=== PATIENT | female | born 1995 | race Native Hawaiian/Other Pacific Islander ===

== ENCOUNTER 2018-04-13 08:00 | Outpatient (CLI) | payer OTHER ==
[2018-04-13 12:13] LABS: HGB - HEMOGLOBIN 12.8 g/dL (12.0-16.0); MEAN CORPUSCULAR HEMOGLOBIN 31.4 pg (27.0-31.0); MEAN CORPUSCULAR HGB CONC 33.9 g/dL (32.0-36.0); MEAN CORPUSCULAR VOLUME 92.8 fL (81.0-99.0); MEAN PLATELET VOLUME 8.5 fL (7.9-10.8); RED BLOOD COUNT 4.07 10^6/uL (4.20-5.40); RED CELL DISTRIBUTION WIDTH 12.2 % (12.0-15.0); WHITE BLOOD COUNT 9.3 x10^3/uL (4.8-10.8)
== END 2018-04-13 08:01 ==
LOC: LAB.N 08:00
PROVIDERS: ATTEND Obstetrics & Gynecology
DX: Z34.90 Encounter for supervision of normal pregnancy, unspecified, unspecified trimester (principal)
CPT/HCPCS: 36415; 82950; 85027; 86850

== ENCOUNTER 2018-04-26 08:00 | Outpatient (CLI) | payer OTHER | END 2018-04-26 08:01 | LOC: LAB.N 08:00 | PROVIDERS: ATTEND Obstetrics & Gynecology | DX: Z36.9 Encounter for antenatal screening, unspecified (principal) | CPT/HCPCS: 36415; 86900; 86901 ==

== ENCOUNTER 2018-06-06 05:59 | Outpatient (CLI) | payer OTHER ==
[2018-06-06] MEDS ORDERED: TERBUTALINE 1 MG/ML VIAL SUBQ STA (06:50)
[2018-06-06] MEDS ORDERED: ONDANSETRON ODT 4 MG TABLET TL STA (06:51)
[2018-06-06 07:35] LABS: BILIRUBIN,URINE NEGATIVE (NEGATIVE); GLUCOSE, URINE (UA) NEGATIVE (NEGATIVE); KETONES,URINE (UA) NEGATIVE (NEGATIVE); LEUKOCYTE ESTERASE, URINE NEGATIVE (NEGATIVE); NITRITE,URINE POSITIVE (NEGATIVE); OCCULT BLOOD,URINE NEGATIVE (NEGATIVE); PROTEIN,URINE NEGATIVE (NEGATIVE); UROBILINOGEN,URINE 0.2 (NORMAL) E.U./dL (NORMAL)
[2018-06-06 07:38] LABS: CLARITY,URINE HAZY (CLEAR)
[2018-06-06 07:47] LABS: BACTERIA,URINE Moderate /HPF (None Seen); RBC,URINE 0-5 /HPF (0-5); SQUAMOUS EPITHELIAL CELL,UR MOD Squamous (<= Few)
[2018-06-06] MEDS ORDERED: TERBUTALINE 2.5 MG TABLET PO ONE (07:57)
[2018-06-06] MEDS ORDERED: BETAMETHASONE 30 MG/5 ML VIAL IM ONE (07:57)
[2018-06-06 10:48] VITALS: BP 125/77
--- NOTE | 2018-06-06 10:51 | PREOP HISTORY & PHYSICAL ---
DATE OF SERVICE: 06/06/2018 Physician: Edin Hardy MD PATIENT IDENTIFICATION: Patient is a 23-year-old G1, P0, female whose EDC is 20 July. She has had multiple visits during this . These started at 21 weeks. She is a transfer in from the [facility]. CHIEF COMPLAINT: Abdominal pain. HISTORY OF PRESENT ILLNESS: Patient was awoken at roughly 2 o'clock this morning with sharp upper abdominal pain. She drank some water, laid down, changed position, went back to sleep. She would awaken again at 5:30 this morning, at which time she had again sharp upper abdominal pain. This pain did start to go down into the uterine area. She denies any bleeding. She did develop some cramping associated with this. She denies any trauma. Her job is a desk job. At this time, she denies any stress or other precipitating causes. Her OB course has been unremarkable at this time. She is noted to have a blood type of AB positive. Her 50 gram Glucola was 109. Otherwise her has been unremarkable. She denies any family history of deliveries. She has a sister who has had previous children. PAST MEDICAL HISTORY: Patient denies any hypertensive, diabetic, cardiac or pulmonary disease. PAST SURGICAL HISTORY: She has had facial reconstruction surgery. ALLERGIES: NONE KNOWN. CURRENT MEDICATIONS: vitamins. HABITS: Patient denies use of alcohol, tobacco, street or addictive drugs. FAMILY HISTORY: Positive for a mother who had breast cancer diagnosed at 43 years of age. This was a cause of at 53. She also has a history of an aunt with breast cancer. There is also a history of colon cancer. SOCIAL HISTORY: Patient is to an active duty [employer]. She, herself, is active duty [employer] and she works as a career counselor. PHYSICAL EXAMINATION GENERAL: Patient is a well-developed, well-nourished female. She is currently in no distress at this time. HEENT: Pupils are equal, round. Extraocular muscles intact. Thyroid is not palpably enlarged. HEART: Regular rate and rhythm without murmurs. LUNGS: Lung soto are clear without rales or wheezes. ABDOMEN: Soft, nontender. There is some mild epigastric tenderness as compared to uterine tenderness. heart rates running up at the 140s prior to receiving terbutaline. She did receive terbutaline and noted to have a resolution of her nausea, vomiting, as well as her uterine cramping. She states her pain is resolved at this time. PELVIC: Cervical examination performed by Nursing showed a cervix which was 1 cm dilated, but still long. IMPRESSION: A 23-year-old G1, P0 female who is currently 33 and 5 weeks' gestational age with contractions which have responded well to terbutaline. The possibility of this also representing gastroesophageal reflux disease is highly probable. We will obtain an ultrasound to look for the placental location and signs of any other placental abnormalities. Patient has received subcutaneous terbutaline 0.25 and now oral 2.5 mg. She has also received 12.5 mg of betamethasone in the possibility that she may go into labor. TD: 06/06/2018 09:15 MTDJenise
--- NOTE | 2018-06-06 11:13 | Ultrasound Report ---
Procedure Date: 06/06/2018 Accession Number: [id number] / [id number] Procedure: US - OB Limited CPT Code: FULL RESULT: EXAM: OB Limited DATE: 06/06/2018 10:47 AM CLINICAL HISTORY: rule out abruption, placenta location TECHNIQUE: Real-time scanning was performed with merchandising representative static images obtained. COMPARISON: None FINDINGS: There is a single live intrauterine gestation with a heart rate of 157 bpm and an amniotic fluid index of 15.2 with an MVP of 5.75 cm. The placenta appears normal with no evidence of previa or placental hemorrhage. A three-vessel cord is noted arising from the mid placenta. A survey was not performed. IMPRESSION: Live intrauterine gestation with no evidence of placental hemorrhage/abruption or placenta previa.
== END 2018-06-06 11:00 | disposition home or self-care (01) ==
LOC: WFO 05:59 → FBP 06:03 → WFO 11:00
PROVIDERS: ATTEND Obstetrics & Gynecology
DX: O47.03 False labor before 37 completed weeks of gestation, third trimester (principal); O21.2 Late vomiting of pregnancy; Z3A.33 33 weeks gestation of pregnancy
CPT/HCPCS: 76815; 81001; 96372; 96374; 99214; A9270; Q0162; 87086

== ENCOUNTER 2018-06-07 08:49 | Outpatient (CLI) | payer OTHER ==
[2018-06-07] MEDS ORDERED: BETAMETHASONE 30 MG/5 ML VIAL IM ONE (08:55)
== END 2018-06-07 09:16 | disposition home or self-care (01) ==
LOC: WFO 08:49 → FBP 08:51 → WFO 09:16
PROVIDERS: ATTEND Obstetrics & Gynecology
DX: O47.03 False labor before 37 completed weeks of gestation, third trimester (principal); Z3A.33 33 weeks gestation of pregnancy
CPT/HCPCS: 96372

== ENCOUNTER 2018-06-22 11:10 | Outpatient (CLI) | payer OTHER | END 2018-06-22 11:11 | disposition home or self-care (01) | LOC: LAB.R 11:10 | PROVIDERS: ATTEND Obstetrics & Gynecology | DX: Z36.9 Encounter for antenatal screening, unspecified (principal) | CPT/HCPCS: 87081 ==

== ENCOUNTER 2018-07-13 05:29 | Outpatient (CLI) | payer OTHER ==
[2018-07-13 05:37] VITALS: BP 123/84
== END 2018-07-13 07:20 | disposition home or self-care (01) ==
LOC: WFO 05:29 → FBP 05:30 → WFO 07:20
PROVIDERS: ATTEND Obstetrics & Gynecology
DX: O47.1 False labor at or after 37 completed weeks of gestation (principal); Z3A.39 39 weeks gestation of pregnancy
CPT/HCPCS: 99213

== ENCOUNTER 2018-07-18 04:46 | Outpatient (CLI) | payer OTHER ==
[2018-07-18 05:19] VITALS: BP 125/78
== END 2018-07-18 07:18 | disposition home or self-care (01) ==
LOC: WFO 04:46 → FBP 04:49 → WFO 07:18
PROVIDERS: ATTEND Obstetrics & Gynecology
DX: Z34.03 Encounter for supervision of normal first pregnancy, third trimester (principal)
CPT/HCPCS: 99213

== ENCOUNTER 2018-07-19 00:08 | Inpatient (IN) | payer OTHER ==
[2018-07-19] MEDS ORDERED: PROMETHAZINE 25 MG/1 ML VIAL IM STA (00:52)
[2018-07-19] MEDS ORDERED: MORPHINE 10 MG/ML VIAL IM STA (00:52)
[2018-07-19] MEDS ORDERED: SODIUM CHLORIDE FLUSH 0.9% 10 ML SYRINGE IVP PRN (07:34)
[2018-07-19] MEDS ORDERED: LACTATED RINGERS 500 ML IV ONE ×2 (07:41→17:13)
[2018-07-19 08:19] LABS: BASOPHILS % (AUTO) 0.3 %; EOSINOPHILS % (AUTO) 0.3 %; HGB - HEMOGLOBIN 13.7 g/dL (12.0-16.0); LYMPHOCYTES # (AUTO) 1.7 10^3/uL (1.5-3.5); LYMPHOCYTES % (AUTO) 11.4 %; MEAN CORPUSCULAR HEMOGLOBIN 30.8 pg (27.0-31.0); MEAN CORPUSCULAR HGB CONC 34.7 g/dL (32.0-36.0); MEAN CORPUSCULAR VOLUME 88.8 fL (81.0-99.0); MEAN PLATELET VOLUME 8.8 fL (7.9-10.8); MONOCYTES # (AUTO) 0.6 10^3/uL (0.0-1.0); MONOCYTES % (AUTO) 4.3 %; NEUTROPHILS # (AUTO) 12.3 10^3/uL (1.5-6.6); NEUTROPHILS % (AUTO) 83.7 %; PLT - PLATELET COUNT 238 10^3/uL (130-450); RED BLOOD COUNT 4.46 10^6/uL (4.20-5.40); RED CELL DISTRIBUTION WIDTH 12.5 % (12.0-15.0); WHITE BLOOD COUNT 14.7 x10^3/uL (4.8-10.8)
[2018-07-19] MEDS ORDERED: SODIUM CHLORIDE FLUSH 0.9% 10 ML SYRINGE IVP SCH (09:00)
[2018-07-19] MEDS ORDERED: LACTATED RINGERS 1,000 ML IV ONE (10:51)
[2018-07-19] MEDS ORDERED: OXYTOCIN/SODIUM CHLORIDE 500 ML IV ONE (10:51)
[2018-07-19] MEDS ORDERED: OXYTOCIN/SODIUM CHLORIDE 500 ML IV SCH (12:00)
[2018-07-19] MEDS ORDERED: fentaNYL 100 MCG/2 ML VIAL IVP PRN (12:24)
[2018-07-19] MEDS: fentaNYL 100 MCG/2 ML VIAL IVP PRN ×2 (13:45→15:40)
--- NOTE | 2018-07-19 13:53 | HISTORY & PHYSICAL EXAMINATION ---
DATE OF SERVICE: 07/19/2018 Physician: Gege Dodge MD CHIEF COMPLAINT: Labor. HISTORY OF PRESENT ILLNESS: The patient has been seen in triage multiple times in the past few days for labor checks. On 07/18/2018, her membranes were swept in the office and she was found to be 3 cm . She presented yesterday evening around 11:00 p.m. with more painful and persistent contractions. At that time, she was found to be 4 cm dilated, but aurora rather infrequently. She was offered options for discharge home, observation with sleeping, or augmentation. She chose observation and s he received 10 mg of morphine and 25 mg of Phenergan IM x1. She was able to sleep steadily for quite a few hours. She called the nurse to check her as she began to feel more uncomfortable and at that point she was 5 cm dilated. She is not having any leaking of water. She is having a little bit of b loody show. She is having good movement. PAST MEDICAL HISTORY: Negative. PAST SURGICAL HISTORY: Facial reconstruction in 2017 after a softball injury. She did require surge ry on her forehead and orbit. PAST MEDICAL HISTORY: Negative. MEDICATIONS: vitamins daily. ALLERGIES: NO KNOWN DRUG ALLERGIES. SOCIAL HISTORY: No tobacco, alcohol, or drug use. FAMILY HISTORY: The patient has a very strong history of breast cancer with her mother being diagnos ed at 43-year-old years old and dying at 53-year-old years old. The patient's mother had multiple si sters most of whom also have breast cancer, most diagnosed in the 40s. No family history of anesthes ia complications. OB HISTORY AND PLAN: The patient is a G1, P0. Her due date is today based on her last menstrual per iod, consistent with a trimester ultrasound. Her labs have been normal including blood type Rh positive, rubella immune, and she has received her Tdap. She is group B strep negative. She has not had any problems with this , except for her prodromal contractions for the past few day s. She also had an episode of threatened labor at 33 weeks, for which she received betametha sone. OBJECTIVE: GENERAL: The patient is afebrile with normal vital signs. She is smiling and standing and rocking f rom side to side in her room. When she has a contraction, she pauses, but does not have to breathe th rough them. ABDOMEN: Soft, gravid, and nontender. Fundus is nontender and contractions palpate moderate. [place] is category 1. We have been intermittently monitoring since then with normal heart tones. Contracti ons are about every 5 minutes. IMPRESSION AND PLAN: A 23-year-old G1, at 40 weeks and 0 days by last menstrual period consistent wi th a second trimester ultrasound with spontaneous labor, vertex, AGA, group B strep negative, categor y 1 tracing. 1. Slow cervical dilation: The patient has had slow dilation through the latent phase of labor and she is almost 6 cm now, but things still are not really kicking in for her. She was offered an ongoi ng period of time of observation with rechecks to make sure that she continues to make cervical merchant e. However, I am concerned that the longer she is in labor the more chance of bleeding, infection th ere might be. Therefore, I offered her the option of AROM or Pitocin augmentation to help to affect delivery in a more timely manner. The patient chose augmentation. We will start Pitocin at 1 milliu nits/minute and go up by 1 milliunits as needed every 30 minutes. Patient is undecided about pain co ntrol. She may want an epidural and she declined to get an epidural prior to starting the Pitocin. Spontaneous vaginal delivery is anticipated. 2. Potential issues: None identified. The patient is healthy and Rh positive, rubella i mmune. She has had her Tdap vaccine. 3. Strong family history of breast cancer: The patient is aware that she is at an increased risk of breast cancer due to her family history. She reports that one of her aunts got checked for the BRCA gene. Her mother is and was not checked before . The patient herself has never been checked. We briefly reviewed that the patient herself will have an option of getting BRCA screened a nd we could discuss this further after her delivery. TD: 07/19/2018 12:16
[2018-07-19] MEDS: LACTATED RINGERS 1,000 ML IV SCH ×2 (16:25→21:10)
[2018-07-19] MEDS ORDERED: fent/BUPIV 2 MCG/0.125% 250 ML EP ONE (16:52)
[2018-07-19] MEDS ORDERED: ROPIVACAINE 0.2% PF 20 ML AMPULE ONE (16:55)
--- NOTE | 2018-07-19 17:12 | ANESTHESIA ---
Pre-Anesthesia VS, & Labs - Diagnosis , in active labour - Procedure labour epidural Vital Signs: Temp Pulse Resp BP Pulse Ox 37.2 C 89 20 124/87 H 98 07/19/18 08:38 07/19/18 08:38 07/19/18 08:38 07/19/18 08:38 07/19/18 08:38 Height 5 ft 4 in Weight (kg) 82.554 kg Body Mass Index 31.2 - NPO >8 hours Last Fluid Intake: clears for last 3 hours - Is Patient ?: Yes - Lab Results Lab results reviewed: Yes Fish Bones: 07/19/18 08:04 Home Medications and Allergies Home Medications: Ambulatory Orders Medication Instructions Recorded Confirmed Hydrocodone/Acetaminophen 1 - 2 tab PO Q4-6H PRN #15 tablet 04/16/14 [Hydrocodon-Acetaminophen 5-325] Allergies/Adverse Reactions: Allergies Allergy/AdvReac Type Severity Reaction Status Date / Time No Known Drug Allergies Allergy Verified 04/16/14 22:07 Anes History & Medical History - Anesthetic History Anesthesia Complications: reports: No previous complications - Medical History Cardiovascular: reports: None Pulmonary: reports: None Gastrointestinal: reports: None Urinary: reports: None Neuro: reports: None Musculoskeletal: reports: None Endocrine/Autoimmune: reports: None Blood Disorders: reports: None Skin: reports: None Smoking Status: Never smoker - Obstetrical History : 1 Parity: 0 Events: positive: None Complications: positive: None Problems: no known issues, FHR 140's and normal per OB RN Exam General: Alert Dental: WNL Neck Mobility: Normal Mallampati classification: II Thyromental Distance: 4-6 cm Cardiovascular: Regular rate Extremities: No edema Mental/Cognitive Status: Alert/Oriented X3, Alert Plan Anesthesia Type: Epidural Consent for Procedure(s) Verified and Reviewed: Yes Code Status: Attempt Resuscitation ASA classification: 2-Mild systemic disease Is this case an emergency?: No
[2018-07-19] MEDS ORDERED: fent/BUPIV 2 MCG/0.125% 250 ML EP PRN (17:13)
[2018-07-19] MEDS ORDERED: diphenhydrAMINE INJ 50 MG/ML VIAL IVP PRN (17:13)
[2018-07-19] MEDS ORDERED: NALBUPHINE 10 MG/ML AMP IVP PRN (17:13)
[2018-07-19] MEDS ORDERED: ONDANSETRON 4 MG/2 ML VIAL IVP PRN (17:13)
[2018-07-19] MEDS ORDERED: METOCLOPRAMIDE 10 MG/2 ML VIAL IVP PRN (17:13)
[2018-07-19] MEDS ORDERED: ePHEDrine 50 MG/ML VIAL IVP PRN (17:13)
[2018-07-19] MEDS ORDERED: NALOXONE 0.4 MG/ML VIAL IVP PRN (17:13)
[2018-07-19] MEDS ORDERED: SIMETHICONE CHEW 80 MG TABLET PO PRN (23:14)
[2018-07-19] MEDS ORDERED: ONDANSETRON ODT 4 MG TABLET TL PRN (23:14)
[2018-07-19] MEDS ORDERED: HYDROCORTISONE/PRAMOXINE 10 GM PR PRN (23:14)
[2018-07-19] MEDS ORDERED: ACETAMINOPHEN 500 MG TABLET PO PRN (23:14)
[2018-07-19] MEDS ORDERED: WITCH HAZEL/GLYCERIN 1 EACH MED..PAD TOP PRN (23:14)
[2018-07-19] MEDS ORDERED: OXYTOCIN/SODIUM CHLORIDE 250 ML IV ONE (23:14)
[2018-07-19] MEDS ORDERED: diphenhydrAMINE 25 MG CAPSULE PO PRN (23:14)
[2018-07-20] MEDS: IBUPROFEN 600 MG TABLET PO PRN ×3 (00:50→20:54)
[2018-07-20] MEDS ORDERED: SODIUM CHLORIDE FLUSH 0.9% 10 ML SYRINGE ONE (03:27)
--- NOTE | 2018-07-20 03:39 | PROCEDURE REPORT ---
DATE OF SERVICE: 07/19/2018 Physician: Gege Dodge MD PROCEDURE: Spontaneous vaginal delivery at term. PREDELIVERY DIAGNOSES 1. Intrauterine at 40 weeks and 0 days. 2. Spontaneous labor. POSTPROCEDURE DIAGNOSIS: Status post spontaneous vaginal delivery at term. PHYSICIAN: Gege Dodge M.D. COUNTS: Correct x2. COMPLICATIONS: None apparent. CONDITION: Good. SPECIMENS: Cord blood for typing. ESTIMATED BLOOD LOSS: 200 mL FINDINGS 1. Liveborn male who appears AGA. Apgars 8 at one minute and 9 at five minutes. 2. Clear fluid initially, followed by terminal meconium. 3. Right vaginal sulcal laceration, repaired. ANTEPARTUM COURSE: The patient has had a normal , uncomplicated. She is healthy. LABOR COURSE: The patient had been prodroming for a few days. She presented 24 hours ago at 4 cm dilated. She was rested overnight with a morphine sleep. This morning, she woke up with increased pain and her cervix had changed to 5 cm. She labored without an epidural for quite some time. She required Pitocin augmentation due to slow cervical change and inadequate contractions. This was effective and helping her to become complete. She received an epidural for pain control. heart tracing was reassuring throughout her labor DELIVERY COURSE: The patient had an urge to push and her contractions were associated with variable decelerations. During the pushing phase, these decelerations did become longer, some with a late return to baseline. The fetus also became tachycardic in its baseline at this point with a heart rate in the 160s. However, moderate long-term variability was maintained and the patient was pushing very effectively and delivery was imminent, and so no intervention was required. She was on oxygen. She progressed very effectively to deliver OA over an intact perineum. There was no nuchal cord. The shoulders and body were easily delivered. The child was placed on mom's belly for warming, drying and stimulation. The cord was left pulsating until it stopped. At this point, the doctor clamped the cord x2 and the father of the baby cut the cord. Cord blood was obtained for typing. The cord blood was drained. At the time of cord clamping, Pitocin was started for active management of the placenta. The placenta was delivered approximately 7 minutes later, intact with a 3-vessel cord, with gentle cord traction and a maternal push. Fundal massage yielded a uterus that was firm and 3 cm below the umbilicus. Bleeding was normal. The patient's sulcal laceration was closed with [id number] sutures of 2-0 Vicryl. ANTICIPATED COURSE: Anticipate a routine primipara course. She is status post Tdap vaccine, Rh positive, rubella immune, and she is healthy. TD: 07/19/2018 23:44 [facility]
--- NOTE | 2018-07-20 12:02 | PROVIDER PROGRESS NOTE ---
Objective - Vital Signs/Intake & Output Vital Signs: Vital Signs x48h Temp Pulse Resp BP Pulse Ox 07/20/18 08:57 98.6 F 62 18 124/70 100 Intake & Output: Intake & Output 07/17/18 07/18/18 07/19/18 07/20/18 23:59 23:59 23:59 23:59 Intake Total 7224.287 6871.25 Output Total 300 2125 Balance 1565.250 -627.75 - Lab Results Fish Bones: 07/19/18 08:04 Assessment/Plan - Problem List (1) Vaginal delivery Impression: S: no problems. Happy. , eating, ambulating, urinating well. No heavy bleeding or severe pain. O: AVSS Alert, smiling, NAD. Abd soft, nt/nd. Fundus firm, NT, 2cm below U A/P: 23yo P1 PPD#1 s/p at term. Doing well, anticipate routine care. Rh+, RI, s/p Tdap. (2) Family history of breast cancer in mother Impression: Will discuss genetic screening later today
[2018-07-20] MEDS: DOCUSATE SODIUM 100 MG CAPSULE PO SCH ×2 (12:33→20:54)
--- NOTE | 2018-07-20 14:08 | PROVIDER PROGRESS NOTE ---
Objective - Vital Signs/Intake & Output Vital Signs: Vital Signs x48h Temp Pulse Resp BP Pulse Ox 07/20/18 12:54 98.1 F 84 18 110/79 99 07/20/18 08:57 98.6 F 62 18 124/70 100 Intake & Output: Intake & Output 07/17/18 07/18/18 07/19/18 07/20/18 23:59 23:59 23:59 23:59 Intake Total 5930.658 3763.25 Output Total 300 2125 Balance 1565.250 -627.75 - Lab Results Fish Bones: 07/19/18 08:04 Assessment/Plan - Problem List (2) Family history of breast cancer in mother Impression: Pt with a strong FH of breast cancer. No FH of ovarian CA. Pt's mother dx'ed in 40s, in 50s from the cancer 4 out of 4 of mother's sisters all had breast cancer diagnosed in 40-50s. One aunt is gene negative. Discussed that the FH is concerning and that she is elligible for BRCA gene testing. Benefit of testing is the ability to prophylax to reduce the risk of harm from cancer. Risk of testing is 1) feeling overly reassured by a normal gene or 2) feeling distressed with news of a mutation--possibly with a large impact on one's life. Pt did not want time to consider, wants gene testing. Ordered.
[2018-07-21 07:34] VITALS: BP 134/79
[2018-07-21] MEDS: DOCUSATE SODIUM 100 MG CAPSULE PO SCH (09:06)
[2018-07-21] MEDS: IBUPROFEN 600 MG TABLET PO PRN (09:06)
--- NOTE | 2018-07-21 11:18 | Discharge Plan ---
Discharge Plan Disposition: 01 Home, Self Care Condition: Good Prescriptions: Docusate Sodium 100 mg PO BID PRN #60 capsule PRN Reason: to soften stool Ibuprofen [Motrin] 600 mg PO Q6H PRN #30 tablet PRN Reason: Abdominal Pain Diet: Regular Activity Restrictions: No Restrictions Shower Restrictions: No Driving Restrictions: No Additional Instructions or Follow Up instructions: See written instructions from labor and delivery. No Smoking: If you smoke, Please STOP! Call for help. Follow-up with: Gege Dodge MD [Provider Admit Priv/Credential] - 2 Weeks
--- NOTE | 2018-07-21 14:04 | DISCHARGE SUMMARY ---
Physician: Gege Dodge MD DATE OF ADMISSION: 07/19/2018 DATE OF DISCHARGE: 07/21/2018 ADMISSION DIAGNOSES 1. Intrauterine at term. 2. Spontaneous labor. 3. Family history of breast cancer. DISCHARGE DIAGNOSES 1. Status post spontaneous vaginal delivery at term. 2. Family history of breast cancer. OPERATIONS AND PROCEDURES: On 07/19/2018, normal spontaneous vaginal delivery at term. HOSPITAL COURSE: The patient was admitted in labor. She did require augmentation. Otherwise, her d elivery was unremarkable. By day 2, she was requesting discharge home. She was eating, ambulating, and urinating wi thout difficulties. She was well and did not have any problems with her pain control o r mood. DISCHARGE EXAMINATION: Afebrile with normal vital signs. The patient is alert and smiling and in no apparent distress. She is and smiling. Abdomen is soft, nontender, nondistended. Fu ndus firm, nontender, and at the umbilicus. No labs were performed. The patient also has a very strong family history of breast cancer. Her mother had breast cancer in her 40s and was by 50. All of her mother's 4 sisters also had breast cancer with onset in t heir 40s. The patient was offered BRCA testing, which she opted to do. We will review these results in clinic. She was counseled about the risks and benefits of testing. DISCHARGE DISPOSITION: Home. CONDITION: Good. FOLLOWUP: In [address] Dodge. MEDICATIONS 1. vitamins daily. 2. Ibuprofen p.r.n. pain. 3. Colace p.r.n. to soften stool. OUTSTANDING LABORATORIES: BRCA screening. TD: 07/21/2018 12:50
== END 2018-07-21 13:50 | disposition home or self-care (01) | DRG 775 ==
LOC: WFO 00:08 → FBP 00:09 → WFO 01:15 → FBP 01:20 → OBSVTOIN 07:34 → FBP 07-20 10:45 → OBS 07-20 10:45 → UNDODISIN 07-21 13:50
PROVIDERS: ADMIT Obstetrics & Gynecology; ATTEND Obstetrics & Gynecology
PROC: 10E0XZZ Delivery of Products of Conception, External Approach (ICD-10-PCS; principal; 2018-07-19)
PROC: 3E033VJ Introduction of Other Hormone into Peripheral Vein, Percutaneous Approach (ICD-10-PCS; 2018-07-19)
PROC: 0HQ9XZZ Repair Perineum Skin, External Approach (ICD-10-PCS; 2018-07-19)
DX: O62.0 Primary inadequate contractions (principal); O71.4 Obstetric high vaginal laceration alone; Z37.0 Single live birth; Z3A.40 40 weeks gestation of pregnancy
CPT/HCPCS: 36415; 81599; 85025; 99213

== ENCOUNTER 2020-01-16 13:22 | Outpatient (CLI) | payer OTHER ==
[2020-01-16 21:20] LABS: TRICHOMONAS VAGINALIS DNA NEGATIVE (NEGATIVE)
== END 2020-01-16 23:59 | disposition home or self-care (01) ==
LOC: LAB.R 13:22
PROVIDERS: ATTEND Nurse Practitioner Obstetrics & Gynecology
DX: Z22.330 Carrier of Group B streptococcus (principal); Z11.3 Encounter for screening for infections with a predominantly sexual mode of transmission
CPT/HCPCS: 87491; 87591; 87661; 87797

== ENCOUNTER 2020-01-26 23:10 | Inpatient (IN) | payer OTHER ==
[2020-01-26] MEDS ORDERED: ONDANSETRON 4 MG/2 ML VIAL IVP PRN (23:48)
[2020-01-26] MEDS ORDERED: ACETAMINOPHEN 325 MG TABLET PO PRN (23:48)
[2020-01-26] MEDS ORDERED: SODIUM CHLORIDE FLUSH 0.9% 10 ML SYRINGE IVP PRN (23:48)
[2020-01-26] MEDS ORDERED: fentaNYL 100 MCG/2 ML VIAL IVP PRN (23:48)
[2020-01-26] MEDS ORDERED: VANCOMYCIN INJ 1 GM in SODIUM CHLORIDE 0.9% 250 ML IV STA (23:48)
[2020-01-27 00:14] LABS: BASOPHILS % (AUTO) 0.2 %; EOSINOPHILS # (AUTO) 0.1 10^3/uL (0.0-0.7); EOSINOPHILS % (AUTO) 1.1 %; HGB - HEMOGLOBIN 13.8 g/dL (12.0-16.0); LYMPHOCYTES # (AUTO) 1.8 10^3/uL (1.5-3.5); LYMPHOCYTES % (AUTO) 17.1 %; MEAN CORPUSCULAR HEMOGLOBIN 29.7 pg (27.0-31.0); MEAN CORPUSCULAR HGB CONC 33.6 g/dL (32.0-36.0); MEAN CORPUSCULAR VOLUME 88.4 fL (81.0-99.0); MEAN PLATELET VOLUME 10.5 fL (7.9-10.8); MONOCYTES # (AUTO) 0.7 10^3/uL (0.0-1.0); MONOCYTES % (AUTO) 6.2 %; NEUTROPHILS % (AUTO) 74.9 %; PLT - PLATELET COUNT 251 10^3/uL (130-450); RED BLOOD COUNT 4.65 10^6/uL (4.20-5.40); RED CELL DISTRIBUTION WIDTH 12.4 % (12.0-15.0); WHITE BLOOD COUNT 10.7 x10^3/uL (4.8-10.8)
[2020-01-27] MEDS: LACTATED RINGERS 1,000 ML IV SCH ×2 (00:19→06:15)
--- NOTE | 2020-01-27 00:19 | HISTORY & PHYSICAL EXAMINATION ---
Admit History - Visit Reason Visit Reason: Contractions (25yo GBS+ at 38 2/7 weeks by LMP c/w first trimester US presents with contractions since evening 01/25 increasing in intensity. No vaginal bleeding or fluid leak. Normal activity. No n/v/f/c or dysuria) - : 2 Parity: 1 Premature: 0 Ectopic: 0 : 0 Care: positive: IWMERLIN, BIBI-Marcella Risk/History: positive: None Complications This : positive: Treated for GBS/UTI, Other (Second trimester bleeding Abnormal glucola; nml 3h GTT) Smoking Status: Former smoker - Mother's Labs Mother's Blood Type: positive: AB Mother's RH: positive: Positive GBS: positive: Group B Strep Positive Rubella Status: positive: Immune (HIV/RPR/HepB NR GC/chlam neg Urine +GBS Glucola 163; 3h GTT 134/ RASHMI 1/LSIL PAP Tdap 11/13/2019) - Other Maternal History Other Maternal History: H/O facial reconstruction Cystic fibrosis Meds/Allgy - Home Medications Home Medications: Ambulatory Orders Medication Instructions Recorded Confirmed Pnv No.95/Ferrous Fum/Folic AC 1 tab PO DAILY 01/27/20 01/27/20 [ [place]] - Allergies Allergies/Adverse Reactions: Allergies Allergy/AdvReac Type Severity Reaction Status Date / Time No Known Drug Allergies Allergy Verified 01/27/20 00:57 Review of Systems - Other Findings Other Findings: As noted above Physical - Abdominal Exam Vital Signs: Temp Pulse Resp BP Pulse Ox 97.7 F 69 17 137/86 H 100 01/26/20 23:19 01/26/20 23:19 01/26/20 23:19 01/26/20 23:29 01/26/20 23:19 Contraction Frequency (min/apart): q3-4 Contraction Intensity: positive: Moderate to strong Uterine Resting Tone: positive: Soft - Monitoring Heart Rate Baseline: 130's Strip Review: positive: Category I - Presentation Presentation: positive: Vertex (by bedside scan) - Vaginal Exam Membranes: positive: Membranes intact Dilation (in cm): 6cm per RN exam Station: positive: 0 - Speculum Exam Speculum Exam Performed: positive: No Plan for Labor - Plan For Labor Plan for Labor: 25yo at 38 2/7 weeks in active labor. GBS bacteruria reported first trimester. Sensitivities not done however, apparently PCN allergy reported erroneously. Will pretreat with benedryl and give ampicillin for prophylaxis. Planning epidural, anesthesia called; start hydration, CBC, T&S ordered. Borderline-mildly elevated BP noted on admission with contractions. Will follow for now. EFW 3400gm Expect Exam - Exam Vital Signs: Vital Signs (72 hours) 01/26/20 01/26/20 23:19 23:29 Temperature 97.7 F Heart Rate [ 69 Monitoring electrodes] Respiratory 17 Rate Blood Pressure 151/90 H 137/86 H [Left Brachial artery] O2 Saturation 100 General: Alert, Oriented x3, Cooperative, Moderate distress (with contractions) Lungs: Clear to auscultation, Normal air movement Cardiovascular: Regular rate, No murmurs Abdomen: Normal bowel sounds, No tenderness, No masses (Gravid, S=D) Skin: No rashes Neurological: Normal gait, Normal speech Psych/Mental Status: Mental status NL
[2020-01-27] MEDS ORDERED: AMPICILLIN 2 GM in SODIUM CHLORIDE 0.9% MINIBAG 100 ML IV ONE (00:21)
[2020-01-27] MEDS ORDERED: diphenhydrAMINE INJ 50 MG/ML VIAL IVP STA (00:23)
[2020-01-27] MEDS: OXYTOCIN/SODIUM CHLORIDE 500 ML IV PRN ×3 (00:46→06:16)
[2020-01-27] MEDS ORDERED: SODIUM CHLORIDE FLUSH 0.9% 10 ML SYRINGE IVP SCH (01:00)
--- NOTE | 2020-01-27 01:05 | PROVIDER PROGRESS NOTE ---
Subjective - Prog Note Date Prog Note Date: 01/27/20 Prog Note Time: 00:25 - Subjective Subjective: Feeling a lot more pressure. VSS afeb Category 1 Anterior lip/+2 AROM clear. Expect Objective - Vital Signs/Intake & Output Vital Signs: Vital Signs x48h Temp Pulse Resp BP Pulse Ox 01/26/20 23:29 137/86 H 01/26/20 23:19 97.7 F 69 17 151/90 H 100 Intake & Output: Intake & Output 01/24/20 01/25/20 01/26/20 01/27/20 23:59 23:59 23:59 23:59 Intake Total 249.75 Balance 249.75 - Lab Results Fish Bones: 01/26/20 23:55 Other Labs: Lab Results x24hrs 01/26/20 01/26/20 Range/Units 23:55 23:55 WBC 10.7 (4.8-10.8) x10^3/uL RBC 4.65 (4.20-5.40) 10^6/uL Hgb 13.8 (12.0-16.0) g/dL Hct 41.1 (37.0-47.0) % MCV 88.4 (81.0-99.0) fL MCH 29.7 (27.0-31.0) pg MCHC 33.6 (32.0-36.0) g/dL RDW 12.4 (12.0-15.0) % Plt Count 251 (130-450) 10^3/uL MPV 10.5 (7.9-10.8) fL Neut # (Auto) 8.0 H (1.5-6.6) 10^3/uL Lymph # (Auto) 1.8 (1.5-3.5) 10^3/uL [place] # (Auto) 0.7 (0.0-1.0) 10^3/uL Eos # (Auto) 0.1 (0.0-0.7) 10^3/uL Baso # (Auto) 0.0 (0.0-0.1) 10^3/uL Absolute Nucleated RBC 0.00 x10^3/uL Nucleated RBC % 0.0 /100WBC Blood Type AB POSITIVE Antibody Screen NEGATIVE
--- NOTE | 2020-01-27 01:08 | DELIVERY NOTE ---
Delivery Note - Infant Delivery Method Infant Delivery Method: positive: Spontaneous vaginal delivery - Presentation Presentation: positive: Vertex, LEIDY - right occiput anterior - Nuchal Cord Nuchal Cord: positive: Present (Tight, not reducible) - Anesthetic Anesthetic Type: - Amniotic Fluid Description Amniotic Fluid Description: positive: Clear - Episiotomy Type Episiotomy Type: positive: None - Laceration Laceration: positive: None - Delivery Outcome Delivery Outcome: positive: Livebirth - Huggins Huggins: positive: Placed in direct skin contact with mother, Suctioned, Stimulated, Warmed, [place] used sex: positive: Male - Cord Cord: positive: 3 vessels - Placenta Placenta: positive: Intact, Spontaneous - Estimated Blood Loss Estimated Blood Loss (in cc): 200 - Post Delivery Events Post Delivery Events: positive: No post delivery events - Delivery Comments (Free Text/Narrative) Delivery Comments (Free Text/Narrative): Precipitous of 3460gm male apgars 8/9 at 00:41 from LEIDY. Tight nuchal cord x1 not reducible. Stimulation and vigorous cry. Placenta delivered intact with traction; thin, marginally inserted 3VC. Small disc. No lacerations EBL 200cc
[2020-01-27] MEDS ORDERED: HYDROCORTISONE 1% CREAM 28 GM TUBE PR PRN (01:14)
[2020-01-27] MEDS ORDERED: WITCH HAZEL/GLYCERIN 1 PAD TOP PRN (01:14)
[2020-01-27] MEDS ORDERED: MAGNESIUM HYDROXIDE 2,400 MG/30 ML UDC PO PRN (01:14)
--- NOTE | 2020-01-27 01:14 | DISCHARGE SUMMARY ---
"Discharge Summary Admit Date: 01/26/20 Discharge Date: 01/28/20 Discharging Provider: Eli Rangel Code Status: Attempt Resuscitation - DIAGNOSES Admission Diagnoses: at 38 2/7 weeks in labor Borderline hypertension - HPI History of Present Illness: 25yo G2 now P2 GBS+ at 38 2/7 weeks presented in spontaneous labor. No ROM or bleeding. Normal activity. No n/v/f/c or dysuria. - CONSULTS | PROCEDURES Procedures: - HOSPITAL COURSE Hospital Course: Patient was found to be 6cm dilated on admission. Anesthesia was called, however, she rapidly progressed and was delivered of a 3460gm male infant apgars 8/9 on 01/26. No lacerations, EBL 200cc. GBS prophylaxis was not given secondary to precipitous delivery. Additionally, it was not possible to obtain a Mirena in time for immediate placement. Her course was uncomplicated. He very transiently elevated BP on admission was not repeated, however, her BP's did remain largely 130's/80's as was noted on several visits which may represent early chronic HTN. No treatment was given. She will return in 3 weeks for f/u, BP check, and in 6 weeks for Mirena. - ALLERGIES Allergies/Adverse Reactions: Allergies Allergy/AdvReac Type Severity Reaction Status Date / Time No Known Drug Allergies Allergy Verified 01/27/20 00:57 - MEDICATIONS Home Medications: Ambulatory Orders Medication Instructions Recorded Confirmed Pnv No.95/Ferrous Fum/Folic AC 1 tab PO DAILY 01/27/20 01/27/20 [ [place]] - PHYSICAL EXAM AT DISCHARGE General Appearance: positive: No acute distress, Alert Respiratory: positive: No respiratory distress Abdomen: positive: Non-tender, No distention (fundus firm, below umbilicus) Extremities: positive: No pedal edema - LABS Result Diagrams: 01/26/20 23:55"
[2020-01-27] MEDS ORDERED: AMPICILLIN 1 GM in SODIUM CHLORIDE 0.9% MINIBAG 100 ML IV SCH (04:30)
[2020-01-27] MEDS: IBUPROFEN 600 MG TABLET PO SCH ×3 (06:13→23:28)
[2020-01-27 06:23] LABS: BASOPHILS % (AUTO) 0.2 %; EOSINOPHILS % (AUTO) 0.2 %; HGB - HEMOGLOBIN 13.1 g/dL (12.0-16.0); LYMPHOCYTES # (AUTO) 1.4 10^3/uL (1.5-3.5); LYMPHOCYTES % (AUTO) 8.7 %; MEAN CORPUSCULAR HEMOGLOBIN 30.6 pg (27.0-31.0); MEAN CORPUSCULAR HGB CONC 34.3 g/dL (32.0-36.0); MEAN CORPUSCULAR VOLUME 89.3 fL (81.0-99.0); MEAN PLATELET VOLUME 10.3 fL (7.9-10.8); MONOCYTES # (AUTO) 0.8 10^3/uL (0.0-1.0); NEUTROPHILS # (AUTO) 13.9 10^3/uL (1.5-6.6); NEUTROPHILS % (AUTO) 85.3 %; PLT - PLATELET COUNT 224 10^3/uL (130-450); RED BLOOD COUNT 4.28 10^6/uL (4.20-5.40); RED CELL DISTRIBUTION WIDTH 12.2 % (12.0-15.0); WHITE BLOOD COUNT 16.4 x10^3/uL (4.8-10.8)
[2020-01-27] MEDS: HYDROcod/ACETAM 5/325 MG TABLET PO PRN ×2 (06:48→23:28)
[2020-01-27] MEDS: DOCUSATE SODIUM 100 MG CAPSULE PO SCH ×2 (08:52→23:29)
--- NOTE | 2020-01-27 11:45 | PROVIDER PROGRESS NOTE ---
Subjective - Prog Note Date Prog Note Date: 01/27/20 Prog Note Time: 11:42 - Subjective Subjective: Delivery day Feeling well, no pain, normal lochia. Regular diet. going well. VSS afeb Abd soft, non-tender. Fundus firm at umbilicus. Labia without edema Extr without edema A/P Stable. Continue routine care. Plan obs for 48 hours secondary to untreated GBS Objective - Vital Signs/Intake & Output Vital Signs: Vital Signs x48h Temp Pulse Resp BP Pulse Ox 01/27/20 08:51 98.3 F 82 18 135/78 H 01/27/20 06:14 98.2 F 79 17 117/70 100 Intake & Output: Intake & Output 01/24/20 01/25/20 01/26/20 01/27/20 23:59 23:59 23:59 23:59 Intake Total 1019.750 Output Total 500 Balance 519.750 - Lab Results Fish Bones: 01/26/20 23:55 Other Labs: Lab Results x24hrs 01/26/20 01/26/20 01/26/20 Range/Units 23:55 23:55 06:17 WBC 10.7 16.4 H (4.8-10.8) x10^3/uL RBC 4.65 4.28 (4.20-5.40) 10^6/uL Hgb 13.8 13.1 (12.0-16.0) g/dL Hct 41.1 38.2 (37.0-47.0) % MCV 88.4 89.3 (81.0-99.0) fL MCH 29.7 30.6 (27.0-31.0) pg MCHC 33.6 34.3 (32.0-36.0) g/dL RDW 12.4 12.2 (12.0-15.0) % Plt Count 251 224 (130-450) 10^3/uL MPV 10.5 10.3 (7.9-10.8) fL Neut # (Auto) 8.0 H 13.9 H (1.5-6.6) 10^3/uL Lymph # (Auto) 1.8 1.4 L (1.5-3.5) 10^3/uL Yates # (Auto) 0.7 0.8 (0.0-1.0) 10^3/uL Eos # (Auto) 0.1 0.0 (0.0-0.7) 10^3/uL Baso # (Auto) 0.0 0.0 (0.0-0.1) 10^3/uL Absolute Nucleated RBC 0.00 0.00 x10^3/uL Nucleated RBC % 0.0 0.0 /100WBC Blood Type AB POSITIVE Antibody Screen NEGATIVE
--- NOTE | 2020-01-28 06:31 | PROVIDER PROGRESS NOTE ---
Subjective - Prog Note Date Prog Note Date: 01/28/20 Prog Note Time: 06:29 - Subjective Subjective: PPD 1 Feeling very well. Ambulating, voiding, tolerating regular diet. Minimal lochia No pain VSS afeb BP's 130's/80 Abd soft, non-tender, below umbilicus A/P Stable. Continue routine care Plan DC home tonight when baby can go. Planning Mirena in 6 weeks Objective - Vital Signs/Intake & Output Vital Signs: Vital Signs x48h Temp Pulse Resp BP Pulse Ox 01/28/20 04:00 97.9 F 65 16 131/81 H 100 Intake & Output: Intake & Output 01/25/20 01/26/20 01/27/20 01/28/20 23:59 23:59 23:59 23:59 Intake Total 1019.750 Output Total 500 Balance 519.750 - Lab Results Fish Bones: 01/26/20 23:55
--- NOTE | 2020-01-28 06:40 | Discharge Plan ---
Discharge Plan Problem Reviewed?: Yes Disposition: Home, Self Care Condition: Good Prescriptions: Acetaminophen [Tylenol] 650 mg PO Q6H PRN #50 tablet PRN Reason: Pain Ibuprofen [Motrin] 600 mg PO Q6H #30 tablet Diet: Regular Activity Restrictions: Pelvic rest Shower Restrictions: No No Smoking: If you smoke, Please STOP! Call for help. Follow-up with: Jacob Castro MD [Primary Care Provider] -
[2020-01-28] MEDS: DOCUSATE SODIUM 100 MG CAPSULE PO SCH (07:54)
[2020-01-28] MEDS: IBUPROFEN 600 MG TABLET PO SCH (07:54)
[2020-01-28 08:12] VITALS: BP 125/72
--- NOTE | 2020-01-28 10:35 | PROVIDER PROGRESS NOTE ---
Objective - Vital Signs/Intake & Output Vital Signs: Vital Signs x48h Temp Pulse Resp BP Pulse Ox 01/28/20 08:12 97.3 F L 65 16 125/72 100 01/28/20 04:00 97.9 F 65 16 131/81 H 100 Intake & Output: Intake & Output 01/25/20 01/26/20 01/27/20 01/28/20 23:59 23:59 23:59 23:59 Intake Total 5211.352 9213 Output Total 500 Balance 539.186 8511 - Lab Results Fish Bones: 01/26/20 23:55
--- NOTE | 2020-01-28 14:15 | Labor Flowsheet ---
Labor Flowsheet Datetime Report Generated by CPN: 01/28/2020 14:14 Datetime: 01/27/2020 08:51 VITAL SIGNS NBP Sys/Michaela/Mean (mmHg): 135 : 78 : 91 Pulse: 84 COMMUNICATION LaborFlag: Labor Datetime: 01/27/2020 01:19 SpO2 (%): 100 Datetime: 01/27/2020 00:45 Stage 2 Comments: abrasion noted by MD, not repaired Datetime: 01/27/2020 00:40 UTERINE ACTIVITY Monitor Mode: External Frequency (min): 1-3 Quality: Strong Duration (sec): 60-80 Pattern: Normal: <= 5 Contractions in 10 Minutes Resting Tone (Palpate): Relaxed ASSESSMENT A Monitor Mode: External US FHR Baseline Rate : 130 Variability: Moderate 6-25 bpm Accelerations: 15X15 Decelerations: None PATIENT CARE Oxygen Method: Room Air Datetime: 01/27/2020 00:39 Membrane Status: Ruptured Membranes Rupture Method: Artificial Amniotic Fluid Color: Clear Amniotic Fluid Amount: Moderate Amniotic Fluid Odor: None STAGE 2 Pushing: Urge to Push Pushing Position: Pushing with Contractions; Pushing Lithotomy Pushing Progress: Descent with Pushing Datetime: 01/27/2020 00:33 VAGINAL EXAM Dilatation (cm): 9.5 Effacement (%): 100 Station: 2 Exam by: dr. virk Datetime: 01/27/2020 00:22 PAIN Pain Scale: 10 Pain Presence: Intermittent Pain Type: Cramping Pain Location: Abdomen Pain Goal: 7 Pain Assessment Comments: awaiting for epidural placement
== END 2020-01-28 13:30 | disposition home or self-care (01) | DRG 806 ==
LOC: WFO 23:10 → FBP 23:12 → WFO 23:37 → FBP 23:38
PROVIDERS: ADMIT Obstetrics & Gynecology; ATTEND Obstetrics & Gynecology
PROC: 10E0XZZ Delivery of Products of Conception, External Approach (ICD-10-PCS; principal; 2020-01-26)
DX: O99.824 Streptococcus B carrier state complicating childbirth (principal); E84.9 Cystic fibrosis, unspecified; Z37.0 Single live birth; O99.284 Endocrine, nutritional and metabolic diseases complicating childbirth; O62.3 Precipitate labor; O69.1XX0 Labor and delivery complicated by cord around neck, with compression, not applicable or unspecified; O69.89X0 Labor and delivery complicated by other cord complications, not applicable or unspecified; O75.89 Other specified complications of labor and delivery; R03.0 Elevated blood-pressure reading, without diagnosis of hypertension; Z3A.38 38 weeks gestation of pregnancy; Z87.891 Personal history of nicotine dependence
CPT/HCPCS: 36415; 85025; 86850; 86900; 86901; 99213; A9270; J1200; J7120

== ENCOUNTER 2020-03-10 13:30 | Outpatient (CLI) | payer OTHER ==
[2020-03-10 21:59] LABS: TRICHOMONAS VAGINALIS DNA NEGATIVE (NEGATIVE)
== END 2020-03-10 23:59 | disposition home or self-care (01) ==
LOC: LAB.R 13:30
PROVIDERS: ATTEND Advanced Practice Midwife
DX: Z11.3 Encounter for screening for infections with a predominantly sexual mode of transmission (principal)
CPT/HCPCS: 87491; 87591; 87661